=== PATIENT | male | born 1985 | race Caucasian/White ===

== ENCOUNTER → 2016-03-16 | Outpatient (CLI) | payer BC ==
[~2016-03-16] MED LIST: ALLO300T2 PO; COLC0.6T7 PO
--- NOTE | 2016-03-16 14:56 | Diagnostic Imaging Report ---
INDICATION: Right upper quadrant pain RADIOPHARMACEUTICAL: 8.6 mCi Tc-99m Choletec IV. TECHNIQUE: Anterior dynamic imaging for 1 hour. Additional 30 minute imaging was performed after ingestion of one can of Ensure. FINDINGS: There is homogenous uptake throughout the liver. The gallbladder is visualized at 10 minutes and small bowel at 20 minutes. After CCK analog administration, there is abnormal contraction of the gallbladder with abnormally low calculated GBEF at 20%. IMPRESSION: 1. No evidence of acute cholecystitis or biliary obstruction. 2. Abnormally low gallbladder ejection fraction of 20%. This can be seen with underlying biliary dyskinesia or chronic acalculous cholecystitis. Dictated by: Dictated on workstation # [id number]
== END ==
LOC: RAD 08:22
PROVIDERS: ATTEND Family Medicine
DX: R10.11 Right upper quadrant pain (principal)
CPT/HCPCS: 78226; A9537; J2805

== ENCOUNTER → 2016-03-20 | Outpatient (CLI) | payer BC ==
[2016-03-20 17:19] LABS: BASOPHILS % (AUTO) 1 % (0-2); EOSINOPHILS # (AUTO) 0.3 10^3uL; EOSINOPHILS % (AUTO) 3 % (0-4); LYMPHOCYTES # (AUTO) 2.5 X10^3; MEAN CORPUSCULAR HEMOGLOBIN 27.1 PG (26.0-34.0); MEAN CORPUSCULAR HGB CONC 34.1 g/dL (31.0-37.0); MEAN CORPUSCULAR VOLUME 80 FL (80-100); MEAN PLATELET VOLUME 10.4 FL (6.0-9.5); MONOCYTES # (AUTO) 0.7 X10^3; MONOCYTES % (AUTO) 9 % (3-11); NEUTROPHILS # (AUTO) 4.7 X10^3; NEUTROPHILS % (AUTO) 57 % (51-67); PLATELET COUNT 224 10^3uL (150-450); WHITE BLOOD COUNT 8.33 10^3uL (4.0-11.0)
[2016-03-20 17:38] LABS: ALBUMIN 4.7 g/dL (3.4-5.0); ANION GAP 17.8 MEQ/L (3-15); CALCULATED IONIZED CALCIUM 3.9 mg/dL (3.8-4.6); TOTAL PROTEIN 8.3 g/dL (6.4-8.5)
== END ==
LOC: LAB 17:07
PROVIDERS: ATTEND Surgery
DX: K81.9 Cholecystitis, unspecified (principal)
CPT/HCPCS: 36415; 80053; 85025

== ENCOUNTER 2016-04-11 06:59 | Day surgery (SDC) | payer BC ==
[2016-04-11] VITALS (8 sets, daily range): BP systolic 102–135; BP diastolic 59–78
[~2016-04-11] VITALS: Ht 177.8 cm; Wt 125.0 kg
[~2016-04-11 06:59] MED LIST changes: +ACETAMINOPHEN 500 MG TAB (TYLENOL) PO SCH; -ALLO300T2 PO; -COLC0.6T7 PO; +LACTATED RINGERS 1,000 ML IV SCH; +SODIUM CHLORIDE FLUSH 3 ML SYR IV PRN; +oxyCODONE IMMEDIATE RELEASE 5 MG (OXYIR) TAB PO SCH
[2016-04-11] MEDS ORDERED: BUPIVACAINE/EPINEPHRINE 0.25%-1:200,000 (MARCAINE) 30 ML VIAL INJ ONE (07:06)
[2016-04-11] MEDS ORDERED: ALFENTANIL 500 MCG/ML (ALFENTA) 5 ML AMP IV ONE (07:51)
[2016-04-11] MEDS ORDERED: ROCURONIUM 50 MG/5 ML (ZEMURON) VIAL IV ONE (07:51)
[2016-04-11] MEDS ORDERED: PROPOFOL 20 ML IV ONE (07:51)
[2016-04-11] MEDS ORDERED: KETOROLAC 60 MG/2 ML (TORADOL) VIAL IM ONE (09:27)
[2016-04-11] MEDS ORDERED: ONDANSETRON 2 MG/ML (Z0FRAN) 2 ML VIAL ONE (09:29)
[2016-04-11] MEDS ORDERED: GLYCOPYRROLATE 0.2 MG/ML (ROBINUL) 1 ML VIAL ONE (09:30)
[2016-04-11] MEDS ORDERED: NEOSTIGMINE 1 MG/ML SYRINGE ONE (09:30)
[2016-04-11] MEDS ORDERED: HYDROcodone/APAP 5 MG/325 MG (NORCO) TAB PO PRN (10:30)
[2016-04-11] MEDS ORDERED: ONDANSETRON 2 MG/ML (Z0FRAN) 2 ML VIAL IV PRN (10:30)
== END 2016-04-11 13:15 | disposition home or self-care (01) ==
LOC: ASC 06:59
PROVIDERS: ATTEND Surgery
PROC: 0FT44ZZ Resection of Gallbladder, Percutaneous Endoscopic Approach (ICD-10-PCS; principal; 2016-04-11)
DX: K81.1 Chronic cholecystitis (principal); K76.0 Fatty (change of) liver, not elsewhere classified; K82.0 Obstruction of gallbladder; E66.9 Obesity, unspecified; Z68.39 Body mass index [BMI] 39.0-39.9, adult
CPT/HCPCS: 47562; J1885; J2710; J3490; J7120